=== PATIENT | male | born 1975 | race Caucasian/White ===

== ENCOUNTER 2023-12-14 01:25 | Inpatient (IN) | payer MEDICAID ==
[2023-12-14] VITALS (7 sets, daily range): BP systolic 134–145; PULSE 99–110; RESP 12–20; TEMP 96.8–99.1; O2SAT 95–99
[~2023-12-14] VITALS: Ht 182.9 cm; Wt 104.3 kg
[2023-12-14 01:58] LABS: BASOPHILS # (AUTO) 0.1 K/uL (0.0-0.2); BASOPHILS % (AUTO) 0.5 % (0.0-2.0); EOSINOPHILS # (AUTO) 0.3 K/uL (0.0-0.4); EOSINOPHILS % (AUTO) 2.6 % (0.0-4.0); HEMATOCRIT 48.5 % (36-54); HEMOGLOBIN 15.9 g/dL (14.0-18.0); LYMPHOCYTES # (AUTO) 2.7 K/uL (1.0-5.5); LYMPHOCYTES % (AUTO) 25.3 % (20.5-51.5); MEAN CORPUSCULAR HEMOGLOBIN 24 pg (27-31); MEAN CORPUSCULAR HGB CONC 33 % (32-36); MEAN CORPUSCULAR VOLUME 74 fL (79.0-98.0); MONOCYTES # (AUTO) 0.9 K/uL (0.0-1.0); MONOCYTES % (AUTO) 8.5 % (1.7-9.3); NEUTROPHILS # (AUTO) 6.7 K/uL (1.8-7.7); NEUTROPHILS % (AUTO) 63.1 % (40.0-70.0); PLATELET COUNT (AUTO) 251 K/uL (130-430); RED BLOOD CELL COUNT(AUTO) 6.53 MIL/uL (4.2-6.2); RED CELL DISTRIBUTION WIDTH 15.7 % (9.0-15.0); WHITE BLOOD COUNT (AUTO) 10.6 K/uL (4.8-10.8)
[2023-12-14 02:20] LABS: ANION GAP 11 (5-15); CALCIUM 9.8 mg/dL (8.4-11.0); CARBON DIOXIDE 26 mmol/L (23-29); CHLORIDE 101 mmol/L (98-107); CREATININE 0.92 mg/dL (0.55-1.30); GFR AFRICAN AMERICAN 113 mL/min (>90); GFR NON AFRICAN-AMERICAN 94 mL/min (>90); GLUCOSE 107 mg/dL (74-106); POTASSIUM 3.7 mmol/L (3.5-5.1); SODIUM SERUM 138 mmol/L (136-145); UREA NITROGEN, BLOOD 19 mg/dL (8-21)
[2023-12-14 02:30] LABS: ALANINE AMINOTRANSFERASE 31 U/L (12-78); ALBUMIN 3.9 g/dL (3.4-4.8); ASPARTATE AMINOTRANSFERASE 17 U/L (10-37); LIPASE 31 U/L (16-77); TOTAL BILIRUBIN 0.5 mg/dL (0.0-1.0); TOTAL PROTEIN, SERUM 7.8 g/dL (6.4-8.3)
[2023-12-14] MEDS: ONDANSETRON HCL 4 MG/2 ML VIAL IVP ONE (03:25)
[2023-12-14] MEDS: MORPHINE 4 MG INJ. 4 MG/ML VIAL IVP ONE (03:26)
[2023-12-14] MEDS: NACL 0.9% 1,000 ML IV ONE (03:35)
[2023-12-14] MEDS ORDERED: ONDANSETRON HCL 4 MG/2 ML VIAL IVP PRN (04:15)
[2023-12-14] MEDS ORDERED: MORPHINE 2 MG/ML INJ. SYRINGE IVP PRN (04:15)
[2023-12-14] MEDS: D5NS 1,000 ML IV STA (05:30)
[2023-12-14] MEDS: D5NS 1,000 ML IV SCH (08:30)
[2023-12-14] MEDS: KCL 20 mEq in D5/0.45NS 1000mL 1,000 ML IV SCH (08:59)
[2023-12-14] MEDS: PANTOPRAZOLE SODIUM 40 MG/VIAL (PROTONIX) IVP SCH (11:04)
[2023-12-14] MEDS: METOCLOPRAMIDE HCL 10 MG/2 ML VIAL IVP SCH (11:04)
[2023-12-14] MEDS ORDERED: DOCUSATE SODIUM 100 MG CAPSULE PO PRN (13:30)
[2023-12-14] MEDS ORDERED: ZOLPIDEM TARTRATE 5 MG TABLET PO PRN (20:15)
[2023-12-14] MEDS ORDERED: MAG-AL HYDROX/SIMETH 30 ML UDC PO PRN (22:30)
[2023-12-14] MEDS: CALCIUM CARBONATE 500 MG/ TAB.CHEW PO ONE (22:34)
[2023-12-15 04:00] VITALS: BP_SYST 130; PULSE 96; RESP 18; TEMP 98.9; O2SAT 98
[2023-12-15 05:20] LABS: BASOPHILS % (AUTO) 0.3 % (0.0-2.0); EOSINOPHILS # (AUTO) 0.2 K/uL (0.0-0.4); EOSINOPHILS % (AUTO) 1.9 % (0.0-4.0); HEMATOCRIT 44.5 % (36-54); HEMOGLOBIN 14.7 g/dL (14.0-18.0); LYMPHOCYTES # (AUTO) 2.2 K/uL (1.0-5.5); LYMPHOCYTES % (AUTO) 26.1 % (20.5-51.5); MEAN CORPUSCULAR HEMOGLOBIN 25 pg (27-31); MEAN CORPUSCULAR HGB CONC 33 % (32-36); MEAN CORPUSCULAR VOLUME 75 fL (79.0-98.0); MONOCYTES # (AUTO) 1.1 K/uL (0.0-1.0); MONOCYTES % (AUTO) 12.4 % (1.7-9.3); NEUTROPHILS # (AUTO) 5.1 K/uL (1.8-7.7); NEUTROPHILS % (AUTO) 59.3 % (40.0-70.0); PLATELET COUNT (AUTO) 241 K/uL (130-430); RED BLOOD CELL COUNT(AUTO) 5.94 MIL/uL (4.2-6.2); RED CELL DISTRIBUTION WIDTH 15.7 % (9.0-15.0); WHITE BLOOD COUNT (AUTO) 8.6 K/uL (4.8-10.8)
[2023-12-15 05:48] LABS: CALCIUM 8.3 mg/dL (8.4-11.0); CREATININE 0.89 mg/dL (0.55-1.30); POTASSIUM 3.3 mmol/L (3.5-5.1)
[2023-12-15 08:06] VITALS: BP_SYST 131; PULSE 83; RESP 14; TEMP 97.7; O2SAT 98
[2023-12-15] MEDS: POTASSIUM CHLORIDE 20 MEQ TABLET.ER PO ONE (09:32)
[2023-12-15 12:00] VITALS: BP_SYST 132; PULSE 79; RESP 12; TEMP 97.8; O2SAT 99
[2023-12-15 13:55] VITALS: BP_SYST 131; PULSE 83; RESP 14; TEMP 97.7; O2SAT 98
[2023-12-15] MEDS ORDERED: DOCU-144 PO (15:37)
[2023-12-15 16:00] VITALS: BP_SYST 136; PULSE 88; RESP 20; TEMP 98.6; O2SAT 99
[2023-12-15] MEDS: FLU VACC QS2023-24(6MOS UP)/PF 0.5 ML/SYR SYRINGE I.M. PRN (16:56)
[2023-12-15 17:34] VITALS: BP_SYST 135; PULSE 87; RESP 18; TEMP 98.6; O2SAT 100
== END 2023-12-15 18:12 | disposition home or self-care (01) | DRG 254 ==
LOC: SED 01:25 → SMU 04:14
PROVIDERS: ADMIT General Practice; ATTEND General Practice
DX: K59.00 Constipation, unspecified (principal); K56.7 Ileus, unspecified; E66.9 Obesity, unspecified; F41.9 Anxiety disorder, unspecified; I10 Essential (primary) hypertension; Z68.31 Body mass index [BMI] 31.0-31.9, adult
CPT/HCPCS: 36415; 70450; 71045; 80048; 80053; 82948; 83690; 83880; 84484; 85025; 96361; 96374; 96375; 99291; C9113; J2270; J2405; J2765